=== PATIENT | female | born 1960 | race Caucasian/White ===

== ENCOUNTER 2023-04-04 01:40 | Emergency (ER) | payer OTHER, SELFPAY ==
--- NOTE | ~2023-04-04 | CT_ITS ---
IMPRESSION: 1. 6 mm stone of the proximal right ureter causing moderate hydronephrosis. 2. 9 mm stone in the left renal pelvis without significant hydronephrosis. 3. Bilateral nonobstructing nephrolithiasis. EXAMINATION: CT abdomen pelvis wo con DATE: 04/04/2023 02:22 INDICATION: Right flank pain TECHNIQUE: Computed tomography (CT) of the abdomen and pelvis was performed without intravenous contr ast. The dose-length product (DLP) was 293.80 mGy-cm. Automated exposure control and iterative recons truction technique were employed. COMPARISON: 10/05/2012 FINDINGS: The lung bases are clear. The heart size is normal. There is a small sliding hiatal hernia. There are changes of cholecystectomy. The liver, spleen, pancreas, and adrenal glands are normal. Th ere is a 6 mm stone of the proximal right ureter causing moderate hydronephrosis. There are at least six nonobstructing stones of the right kidney which measure up to 5 mm. There is a 9 mm stone in the left renal pelvis without significant hydronephrosis. There are at least three nonobstructing stones of the left kidney which measure up to 8 mm. No pathologically enlarged abdominal or pelvic lymph nod es are identified. No free intraperitoneal gas or evidence of bowel obstruction. The appendix is norm al. There is moderate lumbar spondylosis. IMPRESSION: 1. 6 mm stone of the proximal right ureter causing moderate hydronephrosis. 2. 9 mm stone in the left renal pelvis without significant hydronephrosis. 3. Bilateral nonobstructing nephrolithiasis. Reviewed, dictated and finalized at location A.
--- NOTE | 2023-04-04 01:47 | ED.GENADULT ---
HPI - General Adult General Chief complaint: Back Pain/Injury Stated complaint: R flank pain Time Seen by Provider: 04/04/23 01:46 History of Present Illness HPI narrative: Norma is a 62F with a PMH of nephrolithiasis that presented to the ED with intermittent right flank pain that started a few days ago but became much worse a few hours ago. It is associated with nausea and mild vomiting. She denies hematuria, dysuria, fevers, chills, CP and dyspnea. Related Data Home Medications Medication Instructions Recorded Confirmed meclizine 25 mg tablet 25 mg PO PRN PRN Vertigo 04/04/23 04/04/23 Allergies Allergy/AdvReac Type Severity Reaction Status Date / Time succinylcholine Allergy Severe Other Verified 04/04/23 02:50 Sulfa (Sulfonamide Allergy Unknown Unknown Verified 04/04/23 02:50 Antibiotics) Review of Systems Review of Systems: All systems reviewed & are unremarkable except as noted in HPI and below PMFSH Social History Social History Smoking status: Never smoker Alcohol intake: current Exam Const: General: healthy appearing and no acute distress Nutritional Appearance: well nourished Orientation/consciousness: patient oriented x3 HENMT: Head: normal to inspection Ears: external ears normal Face/Nose/Sinus: Normal external nose present Face and sinus: normal facial exam Mouth: Yes Normal oral and palatal mucosa present Eyes: Conjunctivae: conjunctivae normal Pupils: Equal, round and reactive pupils present EOM: EOMs intact bilaterally Neck: Neck: normal visual inspection Chest: Chest palpation & inspection: normal inspection of the chest Resp: Effort & Inspection: normal respiratory effort Auscultation: clear to auscultation bilaterally Cardio: Rate: regular rate Rhythm: regular rhythm GI: Inspection: non-distended GI Palp: Yes Soft to palpation, No Tenderness to palpation present (GI) and No Guarding due to palpation present (GI) Auscultation: normal bowel sounds Back/Spine/Pelvis: Back: CVA tenderness (right CVA tenderness) Skin: General skin exam: normal color Rashes: no rashes Neuro: General: patient oriented x3 and moves all extremities Cranial nerves: Yes Nystagmus not present Extrem: General: normal to inspection Psych: Mental Status: mental status grossly normal Affect: normal affect Course Course Emergency Course: Ordered CT, labs, UA and morphine, toradol as well as zofran. UA had no leuk esterase or nitrates. It did have bacteria but it also had a lot of squamous epithelial cells. CBC showed no leukocytosis but did show mild anemia. Chemistries showed an elevated Cr. of 1.47 (unknown baseline) and a mildly elevated CRP at 1.4. CT showed mild hydronephrosis with a 5mm calculus in proximal right ureter She has an appt with her regular doctor in 2 days. If she is not feeling better by then she was instructed ask for a referral for urology. She was given hydrocodone, ondansetron and tamsulosin to help pass the stone. Vital Signs Vital signs: Vital Signs Temperature 98.1 F 04/04/23 01:50 Pulse Rate 78 04/04/23 01:50 Respiratory Rate 20 04/04/23 01:50 Blood Pressure 160/79 H 04/04/23 01:50 Pulse Oximetry 98 04/04/23 01:50 Oxygen Delivery Room Air 04/04/23 01:50 Temperature 98.4 F 04/04/23 04:45 Pulse Rate 81 04/04/23 04:45 Respiratory Rate 16 04/04/23 04:45 Blood Pressure 104/65 04/04/23 04:45 Pulse Oximetry 94 04/04/23 04:45 Oxygen Delivery Room Air 04/04/23 01:50 Medical Decision Making Vital Signs Vital Signs: Vital Signs Temperature 98.1 F 04/04/23 01:50 Pulse Rate 78 04/04/23 01:50 Respiratory Rate 20 04/04/23 01:50 Blood Pressure 160/79 H 04/04/23 01:50 Pulse Oximetry 98 04/04/23 01:50 Oxygen Delivery Room Air 04/04/23 01:50 Temperature 98.4 F 04/04/23 04:45 Pulse Rate 81 04/04/23 04:45 Respiratory Rate 16
[2023-04-04 01:50] VITALS: BP 160/79; PULSE 78; RESP 20; TEMP 36.7; O2SAT 98
[2023-04-04 01:55] LABS: Appearance Urine Clear (Clear); Bilirubin Urine Negative (Negative); Blood Urine 2+ (Negative); Color Urine Yellow (Yellow); Glucose Urine UA Negative (Negative); Ketones Urine Negative (Negative); Leukocyte Esterase Ur Negative LEU/UL (Negative); Nitrate Urine Negative (Negative); Protein Urine 2+ (Negative); Specific Grav Ur >= 1.030 (1.010-1.020); pH Urine 5.5 (5.0-8.0)
[2023-04-04 02:02] LABS: Add Urine Microscopic? YES; Bacteria Urine 3+ /hpf; Calcium Oxalate Crystals Urine Present /hpf; Squamous Epithelial Cell Urine Moderate /hpf (Few); WBC Urine 0-3 /hpf (0-3)
[2023-04-04] MEDS: ONDANSETRON INJ 4 MG/2 ML VIAL IV PUSH (02:03)
[2023-04-04] MEDS: KETOROLAC 30 MG/ML VIAL (*BKC) IV PUSH (02:04)
[2023-04-04] MEDS: MORPHINE SULFATE (*CRX) 4 MG/ML INJ IV PUSH (02:05)
[2023-04-04 02:17] LABS: Basophils Absolute Auto 0.05 K/mm3 (0.00-0.10); Basophils Percent Auto 0.6 % (0.0-1.0); Eosinophils Absolute Auto 0.07 K/mm3 (0.02-0.50); Eosinophils Percent Auto 0.8 % (1.0-6.0); Hematocrit 36.5 % (35.0-49.0); Hemoglobin 11.8 g/dL (12.0-15.0); Immature Granulocyte Absolute 0.02 K/mm3 (0.00-0.00); Immature Granulocyte Percent A 0.2 % (0.0-0.0); Lymphocytes Absolute Auto 2.49 K/mm3 (1.10-4.50); Lymphocytes Percent Auto 27.5 % (18.0-42.0); Mean Corpuscular HGB Conc 32.3 g/dL (32.0-36.0); Mean Corpuscular Hemoglobin 29.5 pg (27.0-31.0); Mean Corpuscular Volume 91.3 fL (78.0-102.0); Mean Platelet Volume 9.6 fl (9.2-11.8); Monocytes Absolute Auto 0.89 K/mm3 (0.10-0.90); Monocytes Percent Auto 9.8 % (2.0-11.0); Neutrophils Absolute Auto 5.5 K/mm3 (1.7-7.2); Neutrophils Percent Auto 61.1 % (50.0-70.0); Platelet Count Result 246 K/mm3 (150-420); Red Cell Distribution Width 11.9 % (11.6-14.4); White Blood Count 9.1 K/mm3 (4.8-10.8)
[2023-04-04 02:49] LABS: Alanine Aminotransferase 43 U/L (14-59); Albumin Level 3.5 g/dL (3.4-5.0); Alkaline Phosphatase 102 U/L (46-116); Anion Gap 8 mmol/L (8-16); Aspartate Amino Transferase 25 U/L (15-37); Bilirubin,Total 0.9 mg/dL (0.00-1.00); Blood Urea Nitrogen 23 mg/dL (7-18); CRP 1.4 mg/dL (0.0-0.9); Calcium 8.8 mg/dL (8.5-10.1); Carbon Dioxide 27 mmol/L (21-32); Chloride 107 mmol/L (98-108); Estimated Glomerular Filt Rate 36; Glucose 167 mg/dL (70-99); Lipase 58 U/L (16-77); Osmolality Calculated 301 mOsm/kg (285-295); Potassium 3.7 mmol/L (3.5-5.1); Sodium 142 mmol/L (136-145); Total Protein 7.4 g/dL (6.4-8.2)
[2023-04-04 02:54] LABS: Lactic Acid Reflex 1.5 mmol/L (0.4-2.0)
[2023-04-04] MEDS: TAMSULOSIN HCL 0.4 MG CAPSULE PO (03:14)
--- NOTE | 2023-04-04 03:17 | PC.NURSE ---
Remain awaiting CT report. Pt resting comfortably. [place] provided to spouse at bedside. Pt voices no other new needs at this time.
[2023-04-04 03:21] VITALS: BP 115/72; PULSE 73; RESP 16; O2SAT 95
[2023-04-04 04:45] VITALS: BP 104/65; PULSE 81; RESP 16; TEMP 36.9; O2SAT 94
== END 2023-04-04 04:54 | disposition home or self-care (01) ==
PROVIDERS: Emergency Provider Family Medicine; PCP Internal Medicine
DX: N20.1 Calculus of ureter (principal)
CPT/HCPCS: 36415; 74176; 80053; 81001; 83605; 83690; 85025; 86140; 96374; 96375; 99284; A9270; J1885; J2270; J2405

== ENCOUNTER 2023-04-07 07:42 | Outpatient (CLI) | payer OTHER, SELFPAY ==
--- NOTE | ~2023-04-07 | US_ITS ---
EXAMINATION: US retroperitoneal comp DATE: 04/07/2023 08:48 INDICATION: Right ureteral calculus TECHNIQUE: Multiple ultrasound grayscale images of the kidneys were obtained. COMPARISON: CT abdomen and pelvis dated 04/04/2023 FINDINGS: The right kidney measures 10.3 x 5.2 x 5.8 cm. The left kidney measures 10.5 x 5.3 x 4.9 cm. The kidn eys demonstrate normal echogenicity. There is mild bilateral hydronephrosis. 1.8 cm echogenic and sha dowing stone is seen at the right ureteropelvic junction. This likely represents but over estimates t he size of a 10 mm stone seen at this location on the CT from 3 days prior. Echogenic stones with typ ical artifact are seen at mid and lower calyces of the left kidney. There is no hydronephrosis in eit her kidney. No stones identified. Bladder is partially decompressed which limits evaluation. Left-si ded ureteral jet is seen on color Doppler. Internal rotation of the hotel attendant multiple left-sided u reteral jets were visualized but no right ureteral jet observed over the course of 5 minutes observat ion. IMPRESSION: 1. Bilateral nephrolithiasis and mild bilateral hydronephrosis, on the right likely due to a persist ent 10 mm stone at the ureteropelvic junction. Reviewed, dictated and finalized at location B. IMPRESSION: 1. Bilateral nephrolithiasis and mild bilateral hydronephrosis, on the right l ikely due to a persistent 10 mm stone at the ureteropelvic junction.
[2023-04-07 08:47] LABS: Anion Gap 8 mmol/L (8-16); Blood Urea Nitrogen 11 mg/dL (7-18); Calcium 8.7 mg/dL (8.5-10.1); Carbon Dioxide 30 mmol/L (21-32); Chloride 103 mmol/L (98-108); Estimated Glomerular Filt Rate 60; Glucose 170 mg/dL (70-99); Osmolality Calculated 295 mOsm/kg (285-295); Potassium 3.6 mmol/L (3.5-5.1); Sodium 141 mmol/L (136-145)
== END 2023-04-07 07:43 | disposition home or self-care (01) ==
LOC: CHSIMG 07:44
PROVIDERS: PCP Internal Medicine; Visit Provider Internal Medicine
DX: N20.1 Calculus of ureter (principal); N20.0 Calculus of kidney; N13.30 Unspecified hydronephrosis
CPT/HCPCS: 36415; 76770; 80048

== ENCOUNTER 2023-04-12 08:57 | Outpatient (CLI) | payer OTHER, SELFPAY ==
--- NOTE | ~2023-04-12 | XR_ITS ---
EXAMINATION: XR abdomen/kub 1V INDICATION: Calculus of the ureter TECHNIQUE: Supine views of the abdomen were obtained on 2 radiographs. COMPARISON: CT, 04/04/2023 FINDINGS: There is a 10 mm stone in the proximal right ureter projecting between the right L2 and L3 transverse processes. There are at least three stones of the left kidney measuring 7 mm. One previous ly seen in the left renal pelvis has migrated to a right kidney lower pole calyx. Bowel contents obsc ure visualization of known right kidney stones. The bowel gas pattern is normal. There is moderate vikas mbar spondylosis. Cholecystectomy clips are noted. IMPRESSION: 1. 10 mm stone in the proximal right ureter. 2. Left nephrolithiasis with interval migration of a left renal pelvis stone into a lower pole calyx of the kidney. Reviewed, dictated and finalized at location B. IMPRESSION: 1. 10 mm stone in the proximal right ureter. 2. Left nephrolithiasis with interval migration of a left renal pelvis stone in to a lower pole calyx of the kidney.
== END 2023-04-12 08:58 | disposition home or self-care (01) ==
LOC: ANHIMG 09:01
PROVIDERS: PCP Internal Medicine; Visit Provider Urology
DX: N20.1 Calculus of ureter (principal); N20.0 Calculus of kidney
CPT/HCPCS: 74018

== ENCOUNTER 2023-04-13 02:21 | Day surgery (SDC) | payer OTHER, SELFPAY ==
[2023-04-12 13:02] VITALS: BMI 34.4
--- NOTE | 2023-04-12 13:08 | PC.NURSE ---
Report to the Outpatient Waiting Room, entrance under the green pavilion located off [facility], at time 0930 on date 04/13/23. Planned Procedure Time: 1130. Time changes happen often and if your time is changed the preop area will call you the afternoon before. - You and your visitor will be asked to self-screen and do not enter if you have any COVID symptoms. - A mask is optional within the hospital at this time. Patients may have clear liquids (water, carbonated beverages, clear teas, apple juice) until 3 hours prior to surgery with a maximum of 20 ounces. - No food from midnight until time of surgery Take the following medications with a SIP of water the morning of surgery: PAIN PILL IF NEEDED DO NOT STOP ANY OF YOUR OTHER PRESCRIPTION MEDICATIONS PRIOR TO SURGERY ?EXCEPT THE FOLLOWING Medications to discontinue per physician: N/A Date to take last dose: N/A Please no make-up, nail argentine, hairspray, perfume, deodorant, or body powder the day of surgery. No jewelry (including any body piercings) or valuables the day of surgery, leave them at home. Please take a shower or bath the night before, or the morning of, surgery with an antibacterial soap. Wear comfortable, loose fitting clothing. - Jewelry must be removed prior to entering the operating room. Rings and piercings that are not removed may be cut off. - The hospital will not accept responsibility for valuables. - Please leave all valuables, including medications, at home the day of surgery. If you are going home after surgery, a licensed trackless trolley driver must drive you home. - NO public transportation without another adult if you receive anesthesia. - We recommend that an adult stay with you for 24 hours following discharge. - We also recommend that you do not drive, make important decision, drink alcoholic beverages, or take any drugs that were not prescribed by your health care provider for at least 24 hours after your discharge time. Follow any additional instructions given to you from your surgeon. If you or anyone in your household have experienced Covid symptoms in the past week, please notify your surgeon or the nurse liaison at the phone number below for possible testing. Telephone instructions given to PT - JUAN DANIEL MCFARLANE and asked if any additional questions and then verbalized understanding. Patient advised to call surgeon office or pre surgery nurse liaison [phone] if any additional questions.
[2023-04-13] VITALS (10 sets, daily range): BP systolic 106–177; BP diastolic 53–105; PULSE 87–105; RESP 14–20; TEMP 36.2–36.4; O2SAT 97–100
--- NOTE | ~2023-04-13 | XR_ITS ---
Supine and upright views of the abdomen Clinical history: Lithotripsy COMPARISON: 04/12/2023 Findings: Bowel gas pattern is nonspecific. No evidence for obstruction or free air. Multiple left re nal stones are stable from prior exam. Stable 10 mm proximal right ureteral stone. Osseous structures are intact. Impression: Stable 10 mm proximal right ureteral stone. Multiple left renal stones are unchanged. Reviewed, dictated and finalized at [facility]. Impression: Stable 10 mm proximal right ureteral stone. Multiple left renal stones are unchanged.
--- NOTE | 2023-04-13 06:24 | WPDHPUPDATE1 ---
History and Physical Update Update Date/Time: 04/13/23 06:24 History and Physical has been reviewed, including an updated exam of the patient. There are NO changes in the patient's condition. Risks, benefits, and alternatives have been discussed and questions answered. Patient agrees to proceed with procedure.
[2023-04-13] MEDS: LACTATED RINGERS 1,000 ML 30 ML IV CONT (10:52)
--- NOTE | 2023-04-13 10:57 | P.PNAN_ITS ---
Anes - Initial Pre Proc Eval Procedure: Operation Date: 04/13/23 11:30 Proposed Procedures p Right Extracorporeal Shock Wave Lithotripsy - Kael White MD Date/Time: 04/13/23 10:57 Surgeon: Kael White MD Pre Op Diagnosis: right ureteral stone Patient Data Age: 62 Gender: F Height: 1.55 m Weight: 82.5 kg Last Vital Signs Temp 36.4 C 04/13/23 10:48 Pulse 87 04/13/23 10:48 Resp 16 04/13/23 10:48 BP 130/76 04/13/23 10:48 Pulse Ox 100 04/13/23 10:48 O2 Del Method Room Air 04/13/23 10:48 Allergies Allergy/AdvReac Type Severity Reaction Status Date / Time succinylcholine Allergy Severe Other Verified 04/13/23 10:23 Sulfa (Sulfonamide Allergy Unknown Nausea Verified 04/13/23 10:23 Antibiotics) Home Medications Medication Instructions Recorded Confirmed Type hydrocodone 5 mg-acetaminophen 325 1 tablet PO Q8H PRN pain #20 tabs 04/04/23 04/12/23 Rx mg tablet meclizine 25 mg tablet 25 mg PO PRN PRN Vertigo 04/04/23 04/12/23 History ondansetron 4 mg disintegrating 4 mg PO Q8H PRN nausea and 04/04/23 04/12/23 Rx tablet vomiting #10 tabs tamsulosin 0.4 mg capsule 0.4 mg PO DAILY #10 caps 04/04/23 04/12/23 Rx Laboratory Tests 04/13/23 10:45 PT Pending INR Pending APTT Pending Patient hx anesthesia problems: pseudocholinesterase deficiency ([facility] - 2020 when intubated for cysto) Family hx anesthesia problems: none Results Review: All pre-operative results and documents have been reviewed as part of the pre- operative evaluation. REPLACED BY [facility] Past Medical History Medical History (Updated 04/13/23 @ 10:58 by Tae Bull MD) Obesity Pseudocholinesterase deficiency Surgical History Surgical History (Updated 04/13/23 @ 10:58 by Tae Bull MD) Hx of cystoscopy Social History Social History Smoking status: Never smoker Alcohol intake: current Alcohol use details: VERY RARE Substance use: never Substance use type: does not use Living arrangements: with family Spiritual care concerns: No Anes - Eval Final PreProcedure Day of Procedure 04/13/23 10:57 Patient weight: obese Heart: regular rate and rhythm Lungs: clear to auscultation Airway: Mallampati scale class II Neurological: alert and oriented Last oral intake: >/= 8 hours ASA classification: II Emergent: no Anesthetic plan: proceed Anesthesia type and monitoring: general LMA and standard monitoring Results Review: All pre-operative results and documents have been reviewed as part of the pre- operative evaluation. Informed Consent: The patient's anesthetic plan and its attendant risks and benefits were discussed with the patient/family/POA. Questions were solicited and answers provided to the satisfaction of the patient/family/POA.
[2023-04-13 11:09] LABS: INR 0.9; Prothrombin Time 12.6 Seconds (11.1-14.7)
[2023-04-13 11:10] LABS: Partial Thromboplastin Time 25.4 SECONDS (22.3-36.8)
[2023-04-13] MEDS: ceFAZolin 2 GM/D5W 50 ML 2 GM/50 ML BAG IVPB (12:21)
[2023-04-13] MEDS: ONDANSETRON INJ 4 MG/2 ML VIAL IV PUSH (13:13)
--- NOTE | 2023-04-13 13:17 | W.PM.PROC2 ---
Procedure Note - Detailed Date of Procedure 04/13/23 Pre-op Diagnosis Right ureteral stone Post-op Diagnosis Same Procedure Performed Right ESWL Surgeon Kael White MD Anesthesia General Description of Procedure The patient was brought to the operative suite where she was placed in the supine position on the Dornier lithotripsy table. The focal point of the lithotripter was placed at a 7-8mm right mid-ureteral calculus. A total of 3000 shocks were delivered at a power setting of 5. There appeared to be good fragmentation of the stone. The patient tolerated the procedure well and was taken to the recovery room in good condition. Drains No Packing No Pathology None sent Complications No immediate complications Condition Stable
[2023-04-13] MEDS: fentaNYL CITRATE INJ (*CRX) 100 MCG/2 ML VIAL 25 MCG IV PUSH ×3 (13:21→13:29)
== END 2023-04-13 15:02 | disposition home or self-care (01) ==
PROVIDERS: PCP Internal Medicine; Visit Provider Urology
PROC: (CPT 50590; principal; 2023-04-13 11:30)
DX: N20.1 Calculus of ureter (principal); E88.09 Other disorders of plasma-protein metabolism, not elsewhere classified; E66.9 Obesity, unspecified; Z68.34 Body mass index [BMI] 34.0-34.9, adult
CPT/HCPCS: 50590; 36415; 74018; 85610; 85730; J0690; J1100; J2405; J2704; J3010; J7120

== ENCOUNTER 2023-04-28 14:09 | Outpatient (CLI) | payer OTHER, SELFPAY ==
--- NOTE | ~2023-04-28 | XR_ITS ---
XR abdomen/kub 1V 04/28/2023 14:24 Indication: Bilateral renal stones Procedure: KUB Comparison: Comparison to multiple prior studies sequentially, with oldest reviewed study dated 10/24. Findings: There are multiple left renal stones. There are stones in the lower pole of the right kidne y which are partially obscured by bowel content. There are cholecystectomy clips. Nonobstructive eleuterio l pattern. There is surgical clip in the pelvis. Impression: 1: Bilateral nephrolithiasis. Reviewed, dictated and finalized at location A. Impression: 1: Bilateral nephrolithiasis.
== END 2023-04-28 14:10 | disposition home or self-care (01) ==
PROVIDERS: PCP Internal Medicine; Visit Provider Urology
DX: N20.0 Calculus of kidney (principal)
CPT/HCPCS: 74018

== ENCOUNTER 2023-06-13 08:41 | Day surgery (SDC) | payer OTHER, MEDICARE, SELFPAY ==
[2023-06-13] VITALS (14 sets, daily range): BP systolic 111–137; BP diastolic 48–90; PULSE 80–102; RESP 14–20; TEMP 36.8–37.2; O2SAT 92–98
--- NOTE | ~2023-06-13 | XR_ITS ---
EXAMINATION: XR retrograde pyelo w/stent LT DATE: 06/13/2023 13:32 CDT INDICATION: LEFT STENT PLACEMENT . TECHNIQUE: 4 fluoroscopic images of the left abdomen and pelvis were obtained during left retrograde pyelography with stent placement performed by the surgeon. I was not present in the operating room. F luoroscopy exposure time was 18.6 seconds. Air Kerma 7.09 mGy. DAP 0.85867 mGym2. COMPARISON: CT abdomen and pelvis and x-ray abdomen, same date FINDINGS: Following cannulation of the left ureter and contrast contrast injection, there is mild caliectasis a nd multiple calyceal and pelvic filling defects. Post stent deployment the proximal stent terminates over the left renal pelvis and the distal stent terminates over the urinary bladder. IMPRESSION: Fluoroscopic documentation of left retrograde pyelography with stent placement. Please refer to the o perative note for complete procedural details . Reviewed, dictated and finalized at location K. IMPRESSION: Fluoroscopic documentation of left retrograde pyelography with stent placement. Please refer to the operative note for complete procedural details .
--- NOTE | ~2023-06-13 | CT_ITS ---
EXAMINATION: CT abdomen pelvis wo con DATE: 06/13/2023 10:44 INDICATION: Flank pain TECHNIQUE: Computed tomography (CT) of the abdomen and pelvis was performed without intravenous contr ast. The dose-length product was 967.54 mGy-cm. Automated exposure control and iterative reconstructi on technique were employed. COMPARISON: CT dated 04/04/2023. FINDINGS: There is dependent atelectasis. There is calcified granuloma in the right lower lobe. Heart size normal. Small hiatal hernia. There is a 6 mm left UPJ stone left left hydronephrosis. There are bilateral renal stones. Status post cholecystectomy. Fatty infiltration of the liver. The spleen, pancreas, adrenal glands ar e unremarkable. Nonobstructive bowel gas pattern. Ureters are normal in course and caliber. Bladder i s decompressed. Status post hysterectomy. No significant vascular abnormality. No lymphadenopathy. Mo derate lumbar spondylosis. IMPRESSION: 1. Obstructing 6 mm left UPJ stone with associated hydronephrosis. 2: Bilateral nephrolithiasis. Reviewed, dictated and finalized at location L.
--- NOTE | ~2023-06-13 | XR_ITS ---
EXAMINATION: XR abdomen/kub 1V DATE: 06/13/2023 12:20 INDICATION: Left kidney stone. TECHNIQUE: A supine view of the abdomen was obtained. COMPARISON: CT abdomen and pelvis 06/13/2023 FINDINGS: There are no dilated loops of bowel. There are surgical clips in the abdomen. The kidneys a re obscured by bowel. There are stones in left kidney measuring up to 8 mm. There is a 6 mm stone in proximal left ureter. IMPRESSION: 1. Stones in the proximal left ureter and left kidney. Reviewed, dictated and finalized at location A.
[2023-06-13 09:27] LABS: Basophils Percent Auto 0.3 % (0.2-1.2); Hematocrit 40.3 % (37.0-47.0); Hemoglobin 12.8 g/dL (12.0-15.0); Immature Granulocyte Absolute 0.05 K/mm3 (0.00-0.031); Immature Granulocyte Percent A 0.4 % (0-0.5); Lymphocytes Absolute Auto 1.25 K/mm3 (0.9-3.2); Lymphocytes Percent Auto 10.3 % (18.3-44.2); Mean Corpuscular HGB Conc 31.8 g/dl (32-36); Mean Corpuscular Hemoglobin 29.4 pg (26-34); Mean Corpuscular Volume 92.6 fl (80-100); Mean Platelet Volume 9.8 fl (7.4-10.4); Monocytes Absolute Auto 0.9 K/mm3 (0.1-0.6); Monocytes Percent Auto 7.5 % (2.6-8.5); Neutrophils Absolute Auto 9.9 K/mm3 (1.3-6.7); Neutrophils Percent Auto 81.5 % (45.5-73.1); Platelet Count Result 262 k/mm3 (150-375); Red Blood Count 4.35 M/mm3 (4.2-5.4); White Blood Count 12.1 K/mm3 (4.5-10.0)
[2023-06-13 09:43] LABS: Alanine Aminotransferase 39 U/L (6-35); Albumin Level 4.6 g/dL (3.5-5.1); Alkaline Phosphatase 97 U/L (38-126); Anion Gap 8 mmol/L (8-16); Aspartate Amino Transferase 37 U/L (14-36); Bilirubin,Total 3.4 mg/dL (0.2-1.3); Blood Urea Nitrogen 16 mg/dL (7-17); Calcium 9.3 mg/dL (8.4-10.2); Carbon Dioxide 29 mmol/L (22-30); Chloride 101 mmol/L (98-107); Estimated CRCL calculation 33 ml/min; Estimated Glomerular Filt Rate 35; Glucose 182 mg/dL (65-110); Potassium 4.1 mmol/L (3.4-5.0); Sodium 138 mmol/L (137-145)
[2023-06-13 10:11] LABS: Appearance Urine Clear (Clear); Bacteria Urine Rare /hpf; Bilirubin Urine Negative (Negative); Blood Urine Negative (Negative); Color Urine Yellow (Yellow); Glucose Urine UA 3+ mg/dL (Negative); Ketones Urine 1+ mg/dL (Negative); Leukocyte Esterase Ur Negative LEU/UL (Negative); Nitrate Urine Negative (Negative); Non Pathogenic Casts 0-2; Protein Urine Trace mg/dL (Negative); RBC Urine 0-2 /hpf (0-2); Specific Grav Ur 1.025 (1.001-1.035); Squamous Epithelial Cell Urine Occasional /hpf (Few); WBC Urine 0-5 /hpf
[2023-06-13 10:12] LABS: Add Urine Microscopic? YES
--- NOTE | 2023-06-13 10:28 | ED.GENADULT ---
HPI - General Adult General Chief complaint: Back Pain/Injury Stated complaint: left flank pain Time Seen by Provider: 06/13/23 10:10 History of Present Illness HPI narrative: 62-year-old female presented emergency department for evaluation of persistent left flank pain since Monday. Patient does have a history of ureterolithiasis and was scheduled to have follow-up today with urology. When patient was seen by Dr. White he felt that due to her not tolerating p.o. at her level of pain control she needed to be evaluated emergency department. So patient was transferred down to triage. Related Data Home Medications Medication Instructions Recorded Confirmed meclizine 25 mg tablet 25 mg PO PRN PRN Vertigo 04/04/23 04/12/23 Allergies Allergy/AdvReac Type Severity Reaction Status Date / Time succinylcholine Allergy Severe Other Verified 06/13/23 10:13 Sulfa (Sulfonamide AdvReac Unknown Nausea Verified 06/13/23 10:30 Antibiotics) Review of Systems Review of Systems: All systems reviewed & are unremarkable except as noted in HPI and below PMFSH Past Medical History Medical History Obesity Pseudocholinesterase deficiency Surgical History Surgical History Hx of cystoscopy Social History Social History Smoking status: Never smoker Alcohol intake: current Alcohol use details: VERY RARE Substance use: never Substance use type: does not use Living arrangements: with family Spiritual care concerns: No Exam Narrative: APPEARANCE: Distress secondary to left flank pain HEAD: normocephalic, atraumatic. EYES: PERRLA/EOMI, conjunctivae clear. NOSE: Normal no drainage NECK: Supple. No adenopathy, no masses. RESPIRATORY: Airway patent, respirations nonlabored. Clear to auscultation bilaterally, no rales, rhonchi, wheezing. CARDIOVASCULAR: Regular rate and rhythm without murmurs rubs or gallops. ABDOMINAL: Soft, left CVA tenderness to palpation MUSCULOSKELETAL: Moves all extremities. Strength/ROM intact, No edema, No calf tenderness. NEURO: Alert. Cranial nerves II through XII intact. Grossly intact SKIN: Warm, dry. Normal Color Course Course Emergency Course: 62 F female presented the ED for evaluation of persistent left flank pain. Patient is being treated with IV Zofran and IV Dilaudid. CT scan was ordered to evaluate for suspected ureteral calculi. CT scan did show a 6 mm retained calculi. Urology took the patient for stent placement with anticipated discharge to home after the procedure. Patient and family were updated the results of the imaging and plan for evaluation by urology. All questions and concerns were addressed Vital Signs Vital signs: Vital Signs Temperature 98.3 F 06/13/23 09:00 Pulse Rate 80 06/13/23 09:00 Respiratory Rate 16 06/13/23 09:00 Blood Pressure 130/87 06/13/23 09:00 Pulse Oximetry 98 06/13/23 09:00 Temperature 99.0 F 06/13/23 13:59 Pulse Rate 80 06/13/23 16:15 Respiratory Rate 18 06/13/23 16:15 Blood Pressure 111/48 L 06/13/23 16:15 Pulse Oximetry 96 06/13/23 15:15 Oxygen Delivery Room Air 06/13/23 16:15 Oxygen Flow Rate 2 06/13/23 15:15 Medical Decision Making Differential Diagnosis Differential Diagnosis: Infected stone, urinary tract infection, ureteral calculi Vital Signs Vital Signs: Vital Signs Temperature 98.3 F 06/13/23 09:00 Pulse Rate 80 06/13/23 09:00 Respiratory Rate 16 06/13/23 09:00 Blood Pressure 130/87 06/13/23 09:00 Pulse Oximetry 98 06/13/23 09:00 Temperature 99.0 F 06/13/23 13:59 Pulse Rate 80 06/13/23 16:15 Respiratory Rate 18 06/13/23 16:15 Blood Pressure 111/48 L 06/13/23 16:15 Pulse Oximetry 96 06/13/23 15:15 Oxygen Delivery Room Air 06/13/23 16:15 Oxygen Flow Rate 2
[2023-06-13] MEDS: ONDANSETRON INJ 4 MG/2 ML VIAL IV PUSH (10:32)
[2023-06-13] MEDS: HYDROmorphone HCL INJ (*CRX) 1 MG/ML SYR 0.5 MG IV PUSH ×2 (10:34→12:19)
[2023-06-13] MEDS: LACTATED RINGERS 1,000 ML 30 ML IV CONT (12:30)
--- NOTE | 2023-06-13 12:30 | WPDURCON ---
Assessment and Plan Assessment and plan (1) Right ureteral stone: Code(s): N20.1 - Calculus of ureter Status: Acute Assessment and Plan: Plan to go to the OR today with Dr. Short: Cystoscopy, left stent placement, retrograde pyelogram. Keep NPO. Obtain Consent. Urology Consult Note HPI Date Seen: 06/13/23 Time Seen: 12:30 Requesting Physician: Tima Short MD Primary Care Provider: Yosi Baker MD Consult Narrative Reason for consult: Left UPJ stone Narrative: Norma Miller is a 62 year old female who presented to the ER today from our Urology office per Dr. White' instruction. She arrived in the office today with c/o severe pain in the left flank with a possible kidney stone, nausea, vomiting and incontinence. She was then referred to the ER for further evaluation. She was scanned in the ER and CT shows a 6mm left UPJ stone with associated hydronephrosis. Creatinine is 1.50, up from 0.94, WBC is 12.1, UA is not suspicious of a UTI, she is afebrile and no urine culture has been sent. KUB does show proximal ureteral stone in the left ureter. She has a history of kidney stones and has had a Right ESWL as of 04/[address] White. Review of Systems Cardiovascular: Cardiovascular: Denies chest pain Respiratory: Respiratory: Reports no additional respiratory complaints Gastrointestinal: Gastrointestinal: Reports abdominal pain, Reports nausea and Denies vomiting Genitourinary: Genitourinary: Denies hematuria, Denies dysuria, Denies pelvic pain, Reports flank pain, Reports urinary incontinence, Denies urinary hesitancy and Denies urinary urgency COUNTS INCLUDE 234 BEDS AT THE [facility] Past Medical History Medical History Obesity Pseudocholinesterase deficiency Surgical History Surgical History Hx of cystoscopy Social History Social History Smoking status: Never smoker Alcohol intake: current Alcohol use details: VERY RARE Substance use: never Substance use type: does not use Living arrangements: with family Spiritual care concerns: No Meds Home Medications and Allergies Home Medications Medication Instructions Recorded Confirmed Type hydrocodone 5 mg-acetaminophen 325 1 tablet PO Q8H PRN pain #20 tabs 04/04/23 04/12/23 Rx mg tablet meclizine 25 mg tablet 25 mg PO PRN PRN Vertigo 04/04/23 04/12/23 History ondansetron 4 mg disintegrating 4 mg PO Q8H PRN nausea and 04/04/23 04/12/23 Rx tablet vomiting #10 tabs tamsulosin 0.4 mg capsule 0.4 mg PO DAILY #10 caps 04/04/23 04/12/23 Rx cephalexin 500 mg capsule 500 mg PO Q8H #9 caps 04/13/23 Rx hydrocodone 5 mg-acetaminophen 325 1 - 2 tablet PO Q6H PRN pain #20 04/13/23 Rx mg tablet tabs Allergies Allergy/AdvReac Type Severity Reaction Status Date / Time succinylcholine Allergy Severe Other Verified 06/13/23 10:13 Sulfa (Sulfonamide AdvReac Unknown Nausea Verified 06/13/23 10:30 Antibiotics) Vital Signs Vital Signs - 24 hr 06/13/23 09:00 Temperature 98.3 F Pulse Rate 80 Respiratory Rate 16 Blood Pressure 130/87 Pulse Oximetry 98 Exam Const: General: cooperative and comfortable Resp: Effort & Inspection: normal respiratory effort Cardio: Rate: regular rate GI: GI Palp: Yes Soft to palpation and Yes Tenderness to palpation present (GI) (LLQ) : General: Yes CVA tenderness on the left Extrem: Right lower extremity: no edema Left lower extremity: no edema Results Labs 06/13/23 09:06 06/13/23 09:06 Labs: Short CBC 06/13/23 Range/Units 09:06 WBC 12.1 H (4.5-10.0) K/mm3 Hgb 12.8 (12.0-15.0) g/dL Hct 40.3 (37.0-47.0) % Plt Count 262 (150-375) k/mm3 BMP 06/13/23 09:06 Sodium 138 Potassium 4.1 Chloride 101 Carbon Dioxide 29 BUN 16 Creatinine 1.50 H Glucose
--- NOTE | 2023-06-13 13:04 | WPDANESEPPF ---
Anes - Initial Pre Proc Eval Procedure: Operation Date: 06/13/23 13:30 Proposed Procedures p Cystoscopy,Left Retrograde Pyelogram,Left Stent Placement - Tima Short MD Date/Time: 06/13/23 13:04 Surgeon: Tima Short MD Pre Op Diagnosis: left flank pain Patient Data Age: 62 Gender: F Height: 1.55 m Weight: 81 kg Last Vital Signs Temp 36.8 C 06/13/23 12:25 Pulse 86 06/13/23 12:25 Resp 18 06/13/23 12:25 BP 137/61 06/13/23 12:25 Pulse Ox 94 06/13/23 12:25 O2 Del Method Room Air 06/13/23 12:25 Allergies Allergy/AdvReac Type Severity Reaction Status Date / Time succinylcholine Allergy Severe Other Verified 06/13/23 10:13 Sulfa (Sulfonamide AdvReac Unknown Nausea Verified 06/13/23 10:30 Antibiotics) Home Medications Medication Instructions Recorded Confirmed Type hydrocodone 5 mg-acetaminophen 325 1 tablet PO Q8H PRN pain #20 tabs 04/04/23 04/12/23 Rx mg tablet meclizine 25 mg tablet 25 mg PO PRN PRN Vertigo 04/04/23 04/12/23 History ondansetron 4 mg disintegrating 4 mg PO Q8H PRN nausea and 04/04/23 04/12/23 Rx tablet vomiting #10 tabs tamsulosin 0.4 mg capsule 0.4 mg PO DAILY #10 caps 04/04/23 04/12/23 Rx cephalexin 500 mg capsule 500 mg PO Q8H #9 caps 04/13/23 Rx hydrocodone 5 mg-acetaminophen 325 1 - 2 tablet PO Q6H PRN pain #20 04/13/23 Rx mg tablet tabs Laboratory Tests 06/13/23 06/13/23 09:06 09:57 WBC 12.1 H K/mm3 (4.5-10.0) RBC 4.35 M/mm3 (4.2-5.4) Hgb 12.8 g/dL (12.0-15.0) Hct 40.3 % (37.0-47.0) MCV 92.6 fl (80-100) MCH 29.4 pg (26-34) MCHC 31.8 L g/dl (32-36) RDW 12.0 % (11.5-14.5) Plt Count 262 k/mm3 (150-375) MPV 9.8 fl (7.4-10.4) Immature Gran % (Auto) 0.4 % (0-0.5) Neut % (Auto) 81.5 H % (45.5-73.1) Lymph % (Auto) 10.3 L % (18.3-44.2) Ida % (Auto) 7.5 % (2.6-8.5) Eos % (Auto) 0.0 % (0-4.4) Baso % (Auto) 0.3 % (0.2-1.2) Lymph # (Auto) 1.25 K/mm3 (0.9-3.2) Ida # (Auto) 0.9 H K/mm3 (0.1-0.6) Eos # (Auto) 0.0 K/mm3 (0-0.3) Baso # (Auto) 0.0 K/mm3 (0.0-0.1) Abs Immat Gran (auto) 0.05 H K/mm3 (0.00-0.031) Absolute Neuts (auto) 9.9 H K/mm3 (1.3-6.7) Absolute Nucleated RBC 0.0 K/mm3 (0.0-0.012) Nucleated RBC % 0.0 % (0.0-0.2) Sodium 138 mmol/L (137-145) Potassium 4.1 mmol/L (3.4-5.0) Chloride 101 mmol/L (98-107) Carbon Dioxide 29 mmol/L (22-30) Anion Gap 8 mmol/L (8-16) BUN 16 mg/dL (7-17) Creatinine 1.50 H mg/dL (0.7-1.0) Estim Creat Clear Calc 33 ml/min Estimated GFR 35 L (59 - ) Glucose 182 H mg/dL (65-110) Calcium 9.3 mg/dL (8.4-10.2) Total Bilirubin 3.4 H mg/dL (0.2-1.3) AST 37 H U/L (14-36) ALT 39 H U/L (6-35) Alkaline Phosphatase 97 U/L (38-126) Total Protein 9.0 H g/dL (6.3-8.2) Albumin 4.6 g/dL (3.5-5.1) Urine Color Yellow (Yellow) Urine Appearance Clear (Clear) Urine pH 7.0 (5.0-9.0) Ur Specific [place] 1.025 (1.001-1.035) Urine Protein Trace mg/dL (Negative) Urine Glucose (UA) 3+ H mg/dL (Negative) Urine Ketones 1+ H mg/dL (Negative) Ur Blood (Man) Negative (Negative) Urine Nitrate Negative (Negative) Urine Bilirubin Negative (Negative) Urine Urobilinogen 1.0 mg/dL (<2.0) Leukocyte Esterase Rfl Negative TRISTON/UL (Negative) Urine RBC 0-2 /hpf (0-2) Urine WBC 0-5 /hpf Ur Squamous Epith Cells Occasional /hpf (Few) Urine Bacteria Rare /hpf Urine Casts 0-2 Patient hx anesthesia problems: pseudocholinesterase deficiency Family hx anesthesia problems: none Results Review: All pre-operative results and
--- NOTE | 2023-06-13 13:06 | WPDHPUPDATE1 ---
History and Physical Update Update Date/Time: 06/13/23 13:06 History and Physical has been reviewed, including an updated exam of the patient. There are NO changes in the patient's condition. Risks, benefits, and alternatives have been discussed and questions answered. Patient agrees to proceed with procedure. Proceed with cystoscopy, left retrograde, left stent placement
[2023-06-13] MEDS: SCOPOLAMINE 1.5 MG PATCH TRANSDERM (13:23)
[2023-06-13] MEDS: LIDOCAINE HCL 2% GEL UROJET 10 ML PKG MUCOUS MEM (13:50)
[2023-06-13] MEDS: ceFAZolin 2 GM/D5W 50 ML 2 GM/50 ML BAG IVPB (13:53)
--- NOTE | 2023-06-13 13:55 | P.OP_ITS ---
Procedure Note - Detailed Date of Procedure 06/13/23 Pre-op Diagnosis left flank pain, Left UPJ calculus Post-op Diagnosis Same Procedure Performed Cystoscopy, left retrograde pyelogram, left ureteral stent placement 4.8 Nigerien contour Surgeon Tima Short MD Anesthesia General Description of Procedure Patient is taken to the operative suite correctly identified. Once anesthesia was obtained she was placed in dorsal lithotomy position and prepped and draped in sterile fashion. Nineteen Nigerien scope was inserted the bladder. There were no tumors noted. Left ureteral orifice was cannulated with a ureteral catheter and a pyelogram was performed. Contrast made its way up into the kidney. A Sen sor wire was then advanced into the renal pelvis. 4.8 Nigerien contour stent was placed with the proximal end coiled in the renal pelvis and the distal in the bladder. Bladder was drained. 2% viscous lidocaine was inserted into the urethra patient is taken recovery room stable condition. Please send a copy of this op note to my office. Estimated Blood Loss 0 Drains Yes Packing No Pathology None sent Complications No immediate complications Condition Stable Disposition PACU
== END 2023-06-13 16:35 | disposition home or self-care (01) ==
LOC: ANHED 11:44 → ANHSURGERY 12:18
PROVIDERS: Emergency Provider Emergency Medicine; PCP Internal Medicine; Visit Provider Urology
PROC: (CPT 52352; principal; 2023-06-13 13:30)
DX: N13.2 Hydronephrosis with renal and ureteral calculous obstruction (principal); E88.09 Other disorders of plasma-protein metabolism, not elsewhere classified; E66.9 Obesity, unspecified; Z68.33 Body mass index [BMI] 33.0-33.9, adult
CPT/HCPCS: 52332; 36415; 74018; 74176; 74420; 80053; 81001; 85025; 87086; 96374; 96375; 99285; A9270; C1758; C1769; C2617; J0690; J1100; J1170; J2250; J2405; J2704; J3010; J7120; Q9966

== ENCOUNTER 2023-06-23 01:42 | Day surgery (SDC) | payer OTHER, MEDICARE, SELFPAY ==
[2023-06-14 15:18] VITALS: BMI 34.3
--- NOTE | 2023-06-14 15:31 | PC.NURSE ---
Report to the Outpatient Waiting Room, entrance under the green pavilion located off [facility], at time 0830 on date 06/23/23. Planned Procedure Time: 1030. Time changes happen often and if your time is changed the preop area will call you the afternoon before. - You and your visitor will be asked to self-screen and do not enter if you have any COVID symptoms. - A mask is optional within the hospital at this time. Patients may have clear liquids (water, carbonated beverages, clear teas, apple juice) until 3 hours prior to surgery with a maximum of 20 ounces. - No food from midnight until time of surgery Take the following medications with a SIP of water the morning of surgery: N/A DO NOT STOP ANY OF YOUR OTHER PRESCRIPTION MEDICATIONS PRIOR TO SURGERY ?EXCEPT THE FOLLOWING Medications to discontinue per physician: N/A Date to take last dose: N/A Please no make-up, nail tajik, hairspray, perfume, deodorant, or body powder the day of surgery. No jewelry (including any body piercings) or valuables the day of surgery, leave them at home. Please take a shower or bath the night before, or the morning of, surgery with an antibacterial soap. Wear comfortable, loose fitting clothing. - Jewelry must be removed prior to entering the operating room. Rings and piercings that are not removed may be cut off. - The hospital will not accept responsibility for valuables. - Please leave all valuables, including medications, at home the day of surgery. If you are going home after surgery, a licensed delivery driver/supervisor must drive you home. - NO public transportation without another adult if you receive anesthesia. - We recommend that an adult stay with you for 24 hours following discharge. - We also recommend that you do not drive, make important decision, drink alcoholic beverages, or take any drugs that were not prescribed by your health care provider for at least 24 hours after your discharge time. Follow any additional instructions given to you from your surgeon. If you or anyone in your household have experienced Covid symptoms in the past week, please notify your surgeon or the nurse liaison at the phone number below for possible testing. Telephone instructions given to PT - JUAN DANIEL MCFARLANE and asked if any additional questions and then verbalized understanding. Patient advised to call surgeon office or pre surgery nurse liaison [phone] if any additional questions.
[2023-06-23] VITALS (8 sets, daily range): BP systolic 100–139; BP diastolic 48–69; PULSE 75–91; RESP 16–22; O2SAT 93–100
--- NOTE | ~2023-06-23 | XR_ITS ---
EXAMINATION: XR abdomen/kub 1V INDICATION: Left-sided urolithiasis TECHNIQUE: Supine views of the abdomen were obtained on 2 radiographs. COMPARISON: 06/13/2023 FINDINGS: A left internal ureteral stent is in expected position. There is a 9 mm stone adjacent to t he coiled portion of the stent in the right renal pelvis. There are stones measuring 8 mm and 9 mm in the left kidney lower pole. Punctate right nephrolithiasis is noted. There are surgical clips in the left pelvis. Cholecystectomy clips are noted. A moderate volume of colonic stool is present. IMPRESSION: 1. Left internal ureteral stent in expected position with stones in the left renal pelvis adjacent to the coiled portion of the stent and in the left kidney lower pole. Reviewed, dictated and finalized at location B. IMPRESSION: 1. Left internal ureteral stent in expected position with stones in the left re nal pelvis adjacent to the coiled portion of the stent and in the left kidney l ower pole.
--- NOTE | 2023-06-23 07:02 | WPDHPUPDATE1 ---
History and Physical Update Update Date/Time: 06/23/23 07:02 History and Physical has been reviewed, including an updated exam of the patient. There are NO changes in the patient's condition. Risks, benefits, and alternatives have been discussed and questions answered. Patient agrees to proceed with procedure.
--- NOTE | 2023-06-23 09:20 | WPDANESEPPF ---
Anes - Initial Pre Proc Eval Procedure: Operation Date: 06/23/23 10:30 Proposed Procedures p Left Extracorporeal Shock Wave Lithotripsy - Kael White MD Date/Time: 06/23/23 09:20 Surgeon: Kael White MD Pre Op Diagnosis: left ureteral stone Patient Data Age: 63 Gender: F Height: 1.55 m Weight: 82.5 kg Allergies Allergy/AdvReac Type Severity Reaction Status Date / Time succinylcholine Allergy Severe Other Verified 06/23/23 09:02 Sulfa (Sulfonamide AdvReac Unknown Nausea Verified 06/23/23 09:02 Antibiotics) Home Medications Medication Instructions Recorded Confirmed Type No Home Medications 06/14/23 06/14/23 History Patient hx anesthesia problems: pseudocholinesterase deficiency Family hx anesthesia problems: none Results Review: All pre-operative results and documents have been reviewed as part of the pre-operative evaluation. COUNT INCLUDES THE [facility] Past Medical History Medical History Obesity Pseudocholinesterase deficiency Surgical History Surgical History Hx of cystoscopy Social History Social History Smoking status: Never smoker Alcohol intake: current Alcohol use details: VERY RARE Substance use: never Substance use type: does not use Living arrangements: with family Spiritual care concerns: No Anes - Eval Final PreProcedure Day of Procedure 06/23/23 09:20 Patient weight: obese Heart: regular rate and rhythm Lungs: clear to auscultation Airway: Mallampati scale class II Neurological: alert and oriented Last oral intake: >/= 8 hours ASA classification: II Emergent: no Anesthetic plan: proceed Anesthesia type and monitoring: general LMA and standard monitoring Results Review: All pre-operative results and documents have been reviewed as part of the pre-operative evaluation. Informed Consent: The patient's anesthetic plan and its attendant risks and benefits were discussed with the patient/family/POA. Questions were solicited and answers provided to the satisfaction of the patient/family/POA.
[2023-06-23] MEDS: LACTATED RINGERS 1,000 ML 30 ML IV CONT (09:48)
[2023-06-23 10:11] LABS: INR 0.9; Prothrombin Time 13.1 Seconds (11.1-14.7)
[2023-06-23 10:12] LABS: Partial Thromboplastin Time 26.2 SECONDS (22.3-36.8)
[2023-06-23] MEDS: ceFAZolin 2 GM/D5W 50 ML 2 GM/50 ML BAG IVPB (10:21)
--- NOTE | 2023-06-23 10:58 | W.PM.PROC2 ---
Procedure Note - Detailed Date of Procedure 06/23/23 Pre-op Diagnosis Left renal stones Post-op Diagnosis Same Procedure Performed Left ESWL Surgeon Kael White MD Anesthesia General Description of Procedure patient is brought to the operative suite received placed in a supine position on the Lithotripter table after the uneventful induction of general LMA anesthetic. Focal point of the Lithotripter was 1st placed at largest stone left renal pelvis. Fracture quite nicely early after just about 1000 shocks power setting to 4. We were then able to split the remainder of the 1500 shocks between the 2 smaller stones the periphery of her left kidney. We therefore were able to treat all stones in her kidney with a total of 2500 shocks at power setting up to 4 she tolerated the procedure well. We did opt to leave the stent in place until follow-up. Packing No Pathology None sent Complications No immediate complications Condition Stable Disposition PACU
[2023-06-23] MEDS: fentaNYL CITRATE INJ (*CRX) 100 MCG/2 ML VIAL 25 MCG IV PUSH (11:27)
[2023-06-23] MEDS: oxyCODONE HCL (*CRX) 5 MG TAB IR PO (12:23)
== END 2023-06-23 13:06 | disposition home or self-care (01) ==
PROVIDERS: PCP Internal Medicine; Visit Provider Urology
PROC: (CPT 50590; principal; 2023-06-23 10:30)
DX: N20.0 Calculus of kidney (principal); E88.09 Other disorders of plasma-protein metabolism, not elsewhere classified; E66.9 Obesity, unspecified; Z68.33 Body mass index [BMI] 33.0-33.9, adult
CPT/HCPCS: 50590; 36415; 74018; 85610; 85730; A9270; J0690; J1100; J2250; J2405; J2704; J3010; J7120

== ENCOUNTER 2023-07-17 10:33 | Outpatient (CLI) | payer MEDICARE, SELFPAY ==
--- NOTE | ~2023-07-17 | XR_ITS ---
Supine and upright views of the abdomen Clinical history: Left ureteral stone COMPARISON: 06/23/2023 Findings: Bowel gas pattern is nonspecific. No evidence for obstruction or free air. Left ureteral st ent remains in place. There are small stones at the left renal pelvis/proximal left ureter. Osseous s tructures are intact. Impression: Left ureteral stent present, with small stones at the proximal left ureter/left renal pelvis. Reviewed, dictated and finalized at location M. Impression: Left ureteral stent present, with small stones at the proximal left ureter/left renal pelvis.
== END 2023-07-17 10:34 | disposition home or self-care (01) ==
LOC: ANHIMG 10:39
PROVIDERS: PCP Internal Medicine; Visit Provider Urology
DX: N20.1 Calculus of ureter (principal)
CPT/HCPCS: 74018

== ENCOUNTER 2023-11-09 09:38 | Outpatient (CLI) | payer MEDICARE, SELFPAY ==
[2023-11-09 10:35] LABS: Anion Gap 11 mmol/L (8-16); Blood Urea Nitrogen 13 mg/dL (7-18); Calcium 8.9 mg/dL (8.5-10.1); Carbon Dioxide 31 mmol/L (21-32); Chloride 99 mmol/L (98-108); Estimated Glomerular Filt Rate > 60; Glucose 185 mg/dL (70-99); Osmolality Calculated 297 mOsm/kg (285-295); Potassium 3.2 mmol/L (3.5-5.1); Sodium 141 mmol/L (136-145)
== END 2023-11-09 09:39 | disposition home or self-care (01) ==
PROVIDERS: PCP Internal Medicine; Visit Provider Urology
DX: N20.0 Calculus of kidney (principal)
CPT/HCPCS: 36415; 80048

== ENCOUNTER 2024-03-05 11:07 | Outpatient (CLI) | payer MEDICARE, SELFPAY ==
--- NOTE | ~2024-03-05 | XR_ITS ---
Supine and upright views of the abdomen Clinical history: Kidney stones COMPARISON: 07/17/2023 Findings: Bowel gas pattern is nonspecific. No evidence for obstruction or free air. Suspected puncta te right renal stones. Osseous structures are intact. Impression: Suspected punctate right renal stones. Reviewed, dictated and finalized at [facility]. Impression: Suspected punctate right renal stones.
== END 2024-03-05 11:08 | disposition home or self-care (01) ==
PROVIDERS: PCP Internal Medicine; Visit Provider Urology
DX: N20.0 Calculus of kidney (principal)
CPT/HCPCS: 74018

== ENCOUNTER 2024-09-09 13:25 | Outpatient (CLI) | payer MEDICARE, SELFPAY ==
--- NOTE | ~2024-09-09 | XR_ITS ---
XR abdomen/kub 1V Ordering provider: Vishal Suarez History: . Bilateral kidney stones . Comparison: None. FINDINGS: BOWEL: Nonobstructive bowel gas pattern. ORGANOMEGALY: None. SIGNIFICANT PATHOLOGIC CALCIFICATIONS: Right kidney stones are noted. Faint calcification the left ki dney lower pole. OTHER: No free air is seen under the diaphragm. Degenerative the spine. Bilateral hip osteoarthritic changes. IMPRESSION: NO ACUTE ABDOMINAL FINDINGS. Bilateral kidney stones. Reviewed, dictated and finalized at location A. ER SUPERIOR
== END 2024-09-09 13:26 | disposition home or self-care (01) ==
LOC: CHSIMG 13:29
PROVIDERS: PCP Internal Medicine
DX: N20.0 Calculus of kidney (principal)
CPT/HCPCS: 74018

== ENCOUNTER 2025-03-21 11:45 | Outpatient (CLI) | payer MEDICARE, SELFPAY ==
--- NOTE | ~2025-03-21 | XR_ITS ---
XR abdomen/kub 1V Ordering provider: Kael White MD History: . bilateral kidney stones x6 months . Comparison: None. FINDINGS: BOWEL: Nonobstructive bowel gas pattern. ORGANOMEGALY: None. SIGNIFICANT PATHOLOGIC CALCIFICATIONS: Left renal stones with the largest measures 3 mm.. OTHER: No free air is seen under the diaphragm. IMPRESSION: NO ACUTE ABDOMINAL FINDINGS. Left kidney stones. Reviewed, dictated and finalized at location A.
== END 2025-03-21 11:46 | disposition home or self-care (01) ==
PROVIDERS: PCP Internal Medicine; Visit Provider Urology
DX: N20.0 Calculus of kidney (principal)
CPT/HCPCS: 74018